=== PATIENT | female | born 1950 | race Caucasian/White ===

== ENCOUNTER 2019-03-31 09:57 | Emergency (ER) | payer MEDICARE, OTHER ==
[~2019-03-31] VITALS: Ht 165.1 cm; Wt 62.6 kg
[2019-03-31] MEDS ORDERED: ATEN25 PO (10:08)
[2019-03-31 11:37] LABS: Source, Urine Clean Catch
[2019-03-31 11:40] LABS: Appearance, Urine Hazy (Clear); Bilirubin, Urine Neg (Neg); Blood, Urine 5+ (Neg); Color, Urine Yellow (P-Yellow); Glucose Qualitative, Urine Neg (Neg); Ketones, Urine Neg (Neg); Leukocyte Esterase, Urine 2+ (Neg); Nitrite, Urine Neg (Neg); Protein, Urine Neg (Neg); Specific Gravity, Urine 1.015 (1.003-1.022); Urobilinogen, Urine NORM (Normal)
[2019-03-31 12:03] LABS: Bacteria Rare /hpf; Red Blood Cells, Urine 50-100 /hpf (0-2); Squamous Epithelial Cells Rare /hpf (Few)
[2019-03-31] MEDS ORDERED: CEPH500 PO (12:10)
[2019-04-08 06:01] LABS: CA OXALATE DIHYDRATE 15 % (.); CA OXALATE MONOHYDR. 20 % (.); COLOR Brown (.); SIZE 14 mm (.); URIC ACID 62 % (.)
== END 2019-03-31 12:35 | disposition home or self-care (01) ==
LOC: ER 09:57
PROVIDERS: Physician Assistant
DX: N21.0 Calculus in bladder (principal); N39.0 Urinary tract infection, site not specified; D72.829 Elevated white blood cell count, unspecified; Z88.5 Allergy status to narcotic agent; Z88.2 Allergy status to sulfonamides; Z79.899 Other long term (current) drug therapy
CPT/HCPCS: 81001; 82360; 87086; 99283